=== PATIENT | female | born 1985 | race Caucasian/White ===

== ENCOUNTER → 2018-03-20 | Outpatient (REF) | payer OTHER | LOC: M SFHCLERA 15:33 | DX: J03.90 Acute tonsillitis, unspecified (principal) ==

== ENCOUNTER → 2018-03-24 | Outpatient (CLI) | payer OTHER | LOC: M LRY 14:57 | DX: R06.02 Shortness of breath (principal) | CPT/HCPCS: 71046; 94640 ==

== ENCOUNTER → 2019-08-17 | Outpatient (REF) | payer OTHER | LOC: M SFHCLERA 11:24 | PROVIDERS: ATTEND Physician Assistant | DX: J02.9 Acute pharyngitis, unspecified (principal) ==